=== PATIENT | female | born 1965 | race Two or more races ===

== ENCOUNTER 2025-07-12 17:23 | Emergency (ER) | payer MEDICAID, SELFPAY ==
[2025-07-12 17:23] VITALS: BMI 41.5
[2025-07-12 18:28] VITALS: BP 181/92; PULSE 88; RESP 18; TEMP 36.9; O2SAT 99
--- NOTE | 2025-07-12 18:41 | XR_ITS ---
Examination: Shoulder,left, 3 views Technique: Shoulder AP internal rotation, AP external rotation, Y view shoulder, 3 views Exam date and time :July 12, 2025, 1849 hours INDICATIONS: Onset shoulder pain today. FINDINGS: Moderate narrowing glenohumeral joint. No shoulder fracture or dislocation. Prominent soft tissue left shoulder calcific tendinitis IMPRESSION: Prominent left shoulder soft tissue calcific tendinitis
--- NOTE | 2025-07-12 18:41 | EKG_ITS ---
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
[2025-07-12 19:40] LABS: Troponin I < 0.002 ng/mL (0.0-0.045)
[2025-07-12 19:44] LABS: D-Dimer 474 ng/mL (<600)
[2025-07-12] MEDS: KETOROLAC INJ 60 MG/2 ML VIAL 30 MG IM (19:45)
[2025-07-12] MEDS: DEXAMETHASONE SOD PHOS INJ 10 MG/ML VIAL IM (19:45)
--- NOTE | 2025-07-12 20:03 | PD.EDUPEX ---
Upper Extremity Injury RME/HPI General Chief Complaint: Extremity Injury, Upper Stated Complaint: LEFT SHOULDER PAIN SINCE YESTER NO INJURY, NO FALL Time Seen by Provider: 07/12/25 18:26 Arrival date/time: 07/12/25 17:23 This is a case of 59-year-old female who came into the emergency room due to left shoulder pain for 2 days patient denies any numbness weakness tingling sensation denies any chest pain shortness of breath denies any injury or trauma persistence of the symptoms this patient decided to sought consult here in the emergency room denies neck pain Limitations: no limitations Related Data Home Medications ?Medication ?Instructions ?Recorded ?Confirmed diltiazem HCl 240 mg 240 mg PO QAM 06/26/23 06/28/23 tablet,extended release 24 hr ergocalciferol (vitamin D2) 50,000 1 unit PO QWEEK 06/26/23 06/26/23 unit tablet metformin 500 mg tablet 500 mg PO BID 06/26/23 06/26/23 prazosin 2 mg capsule (Minipress) 2 mg PO QPM 06/26/23 06/26/23 sertraline 100 mg tablet 100 mg PO QDAY 06/26/23 06/26/23 simvastatin 10 mg tablet 10 mg PO QDAY 06/26/23 06/26/23 Previous Rx's ?Medication ?Instructions ?Recorded cefuroxime axetil 500 mg tablet 500 mg PO BID #14 tabs 08/21/23 baclofen 10 mg tablet 10 mg PO BID PRN muscle spasm #10 07/12/25 tabs naproxen 500 mg tablet (Naprosyn) 500 mg PO BID PRN pain #20 tabs 07/12/25 prednisone 20 mg tablet See Taper PO QDAY 5 days #5 tabs 07/12/25 Allergies Allergy/AdvReac Type Severity Reaction Status Date / Time codeine AdvReac Severe Vomiting Verified 07/12/25 17:25 Review of Systems Review of Systems Systems Reviewed: All systems reviewed, normal except as documented Constitutional Constitutional: Reports system reviewed and no additional complaints, except as documented and Reports as per HPI Cardiovascular Cardiovascular: Reports system reviewed and no additional complaints, except as documented, Reports as per HPI, Denies chest pain and Denies dyspnea Respiratory Respiratory: Reports system reviewed and no additional complaints, except as documented, Reports as per HPI and Denies dyspnea Gastrointestinal Gastrointestinal: Reports system reviewed and no additional complaints, except as documented and Reports as per HPI Genitourinary Genitourinary: Reports system reviewed and no additional complaints, except as documented and Reports as per HPI Musculoskeletal Musculoskeletal: Reports system reviewed and no additional complaints, except as documented, Reports as per HPI and Reports other (Left shoulder pain) Neurologic Neurologic: Reports system reviewed and no additional complaints, except as documented and Reports as per HPI Past Medical History Past Medical History NEUROLOGIC: Positive Migraine; Negative Neurological Disorders, Cerebrovascular Accident, Transient Ischemic Attacks (TIA), Dementia, Alzheimer's Disease, Parkinson's Disease, Brain Tumor, Meningitis, Seizures, Epilepsy, Multiple Sclerosis, Cerebral Palsy, Amyotrophic Lateral Sclerosis (ALS/Tete Gehrig's), Guillain-Osteen Syndrome, Spina Bifida, Paralysis, Peripheral Neuropathy, Smith's Palsy, Subdural Hematoma, Head Trauma, Spinal Cord Injury or Traumatic Brain Injury CARDIAC: Positive Cardiac Disorders, Hypercholesterolemia, Edema and Hypertension; Negative Myocardial Infarction, Cardiac Arrhythmia, Atrial Fibrillation, Angina, Heart Murmur, Coronary Artery Disease, Atherosclerotic Heart Disease, Peripheral Vascular Disease, Aneurysm, Congestive Heart Failure, Congenital Heart Disease, Valvular Heart Disease, Rheumatic Fever, Cardiomyopathy, Pericarditis, Cellulitis, Deep Vein Thrombosis, Hypotension or Varicose Veins RESPIRATORY: 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, was treated) and Sleep Apnea (Cpap); Negative Chronic Obstructive Pulmonary Disease (COPD), Asthma, Bronchitis, Emphysema, Pneumonia, Pulmonary Fibrosis, Cystic Fibrosis, Pulmonary Embolism or Pulmonary Edema GASTROINTESTINAL: Positive Gastrointestinal Disorders, Gall Bladder Disease, Diverticulitis, Diverticulosis, Hemorrhoids, Gastroesophageal Reflux Disease and Obesity; Negative Hepatitis, Cirrhosis, Pancreatitis, Celiac Disease, Gastrointestinal Bleed, Esophageal Varices, Xiong's Esophagus, Colitis, Ulcerative Colitis (not sure), Ulcer, Colorectal Cancer, Irritable Bowel, Obstructive Bowel or Hiatal Hernia (not sure) GENITOURINARY: Positive Genitourinary Disorders (stress incontinence) and Inguinal Hernia (Left); Negative Renal Disease, Kidney Stones, Polycystic Kidney Disease, Neurogenic Bladder or Dialysis REPRODUCTIVE: Positive Previous Pregnancies (8); Negative Breast Cancer, Endometriosis, Genital Herpes, Gonorrhea, Pelvic Inflammatory Disease, Syphilis or Uterine Prolapse MUSCULOSKELETAL: Positive Musculoskeletal Disorders (3 broken ribs and R knee OA), Arthritis (R knee) and Fractures (ribs); Negative Muscular Dystrophy, Myasthenia Gravis, Marfan's Syndrome, Bone Cancer, Rheumatoid Arthritis, Osteoporosis, Degenerative Disk Disease, Gout, Scoliosis, Carpal Tunnel Syndrome, Fibromyalgia, Degenerative Joint Disease, Osteomyelitis or Poliovirus ENT: Negative Cataracts, Glaucoma, Blind, Retinal Detachment, Macular Degeneration, Ear Infection, Deafness, Head Trauma or Eye Prosthesis ENDOCRINE: Positive Endocrine Disorders and Diabetes Mellitus Type 2 (prediabetes); Negative Diabetes Mellitus Type 1, Hypoglycemia, [place]'s Syndrome, Vernon's Disease, Hyperthyroidism, Hypothyroidism, Parathyroid Disease, Pituitary Disease, Systemic Lupus Erythematosus, Syndrome of Inappropriate Antidiuretic Hormone (SIADH), Adrenal Disease or Graves' Disease HEMATOLOGIC: Negative Blood Disorders, Anemia, Leukemia, Hemophilia, Thalassemia, Sickle Cell Disease or Clotting Problems PSYCHO/SOCIAL: Positive Psychiatric Problems (depression, anxiety, and PTSD), Depression, Anxiety and Post Traumatic Stress Disorder; Negative Schizophrenia, Recreational Drug Use, Bipolar Disorder, Behavior Problems, Self-Mutilation, Attention Deficit Disorder, Attention Deficit Hyperactivity Disorder, Depression or Eating Disorder OTHER HISTORY: Positive Hospitalization (5150 depression), Chicken Pox and Measles; Negative Autoimmune Disease, Down Syndrome, Autism, Developmental Delay, Shingles, Falls, Blood Transfusions, Blood Transfusion Reaction, Anesthesia Reactions, Organ Transplant, Chemotherapy, Radiation Therapy, Hyperbaric Therapy, MRSA, VRSA, Vancomycin-Resistant Enterococci, Human Immunodeficiency Virus (HIV), Mumps, Rubella ([place]amese Measles), Pertussis, Clostridium Difficile, Cancer, Breast Cancer, Cervical Cancer, Colorectal Cancer, Lung Cancer or Ovarian Cancer Family History FAMILY HISTORY: Positive Family Cardiac Disorders and Family Surgery; Negative Family Psychiatric Problems, Family Respiratory Disorders, Family Gastrointestinal Problems, Family Cancer or Family Anesthesia Reaction Surgical History SURGICAL: Positive Oral Surgery (root canal (1).), Abdominal Surgery (GB removed 1989), Arthroscopy (Right knee), Tubal Ligation and Section (2); Negative Cardiac Surgery, Open Heart Surgery, Coronary Artery Bypass Graft, Valve Replacement, Vascular Surgery, Coronary Stent, Cardiac Catheterization, Pacemaker, Angiogram, Auto Implanted Cardiovert Defib, Carotid Endarterectomy, Endocrine Surgery, Thyroidectomy, Ear Surgery, Tympanostomy Tube, Eye Surgery, Nose Surgery, Tonsillectomy, Adenoidectomy, Cochlear Implant, Corneal Transplant, Throat Surgery, Tracheostomy, Gastric Bypass Surgery, Gastrostomy, Bowel Surgery, Nephrectomy, Joint Replacement, Amputation, Open Reduction Internal Fixation, Neurologic Surgery, Brain Shunt, Mastectomy, Lumpectomy, Hysterectomy or Organ Transplant Social History SMOKING STATUS: Never smoker SECOND HAND EXPOSURE: No SUBSTANCE USE: does not use ED Exam General Limitations: Present no limitations General appearance: Present alert, in no apparent distress and other (Patient is awake alert oriented not in distress nontoxic looking well-hydrated) Head Head exam: Present atraumatic, normocephalic and normal inspection Eye Eye exam: Present normal appearance, PERRL and EOMI ENT ENT exam: Present normal exam, normal oropharynx and mucous membranes moist Neck Neck exam: Present normal inspection, full ROM and trachea midline; Absent tenderness, meningismus, lymphadenopathy or thyromegaly Chest Chest inspection: Present normal inspection and symmetric chest wall rise; Absent tenderness Respiratory Respiratory exam: Present normal lung sounds bilaterally; Absent respiratory distress, wheezes, stridor, accessory muscle use or prolonged expiratory phase Cardiovascular Cardiovascular exam: Present regular rate and normal rhythm; Absent bradycardia, tachycardia, irregular rhythm, normal heart sounds, systolic murmur or diastolic murmur Abdominal Exam Abdominal exam: Present soft and normal bowel sounds Extremities Exam Extremities exam: Present normal inspection and full ROM Expanded Upper Extremity Exam Shoulder exam: Present tenderness, swelling and other (Noted a tenderness around the left deltoid area with mild swelling no crepitation no deformity no redness no swelling no cellulitis ROM is limited due to pain motor or sensory positive for any intact neurovascular intact); Absent abrasion, laceration, ecchymosis, deformity, crepitus, dislocation, erythema or tenderness over AC joint Arm exam: Present normal inspection and full ROM; Absent tenderness or swelling Back Exam Back exam: Present normal inspection and full ROM Neurological Exam Neurological exam: Present alert, oriented X3, CN II-XII intact, normal gait and reflexes normal; Absent motor sensory deficit Psychiatric Psychiatric exam: Present normal affect and normal mood Skin Skin exam: Present warm, dry, intact and normal color Course Quality Measures none Orders Category Date Time Status EKG (ED ONLY) *Do not use* NOW Care 07/12/25 18:41 Completed sling [Splint / Immobilizer] STAT Care 07/12/25 18:41 Active EKG (ED Only) Stat Exams 07/12/25 18:41 Draft XR shoulder LT min 2V Stat Exams 07/12/25 18:41 Completed D-Dimer Stat Lab 07/12/25 18:50 Completed Troponin I Stat Lab 07/12/25 18:50 Completed Dexamethasone Inj [Decadron Inj] Med 07/12/25 18:41 Discontinued 10 mg IM X1 ONE Ketorolac Inj [Toradol Inj] Med 07/12/25 18:41 Discontinued 30 mg IM X1 ONE Vital Signs Vital signs: Vital Signs Temperature 98.5 F 07/12/25 18:28 Pulse Rate 88 07/12/25 18:28 Respiratory Rate 18 07/12/25 18:28 Blood Pressure 181/92 H 07/12/25 18:28 Pulse Oximetry (%) 99 07/12/25 18:28 Oxygen Delivery Method Room Air 07/12/25 18:28 Oxygen saturation in room air 99% on room air Extremity Injury MDM Narrative MDM Narrative:: This is a case of 59-year-old female who came into the emergency room due to left shoulder pain for 2 days patient denies any numbness weakness tingling sensation denies any chest pain shortness of breath denies any injury or trauma persistence of the symptoms this patient decided to sought consult here in the emergency room denies neck pain physical examination showed Noted a tenderness around the left deltoid area with mild swelling no crepitation no deformity no redness no swelling no cellulitis ROM is limited due to pain motor or sensory positive for any intact neurovascular intact due to left shoulder and arm pain I decided to ordered some blood test to ruled out PA or DVT patient troponin and EKG was normal which I ruled out a cardiac origin the D-dimer is also normal and thus patient is not having DVT patient x-ray showed a calcific tendinitis patient was given Toradol for pain and dexamethasone and sling was applied patient tolerated well neurovascular intact patient was advised to see an orthopedic surgeon for possible MRI to rule out rotator cuff injury and for any worsening symptoms return to the emergency room immediately or call 911 Patient was discharged with comfortable condition walking with stable gait. Patient verbalized no further complains explained diagnosis and answered patient question. Patient is comfortable with the proposed management plan including the need to follow up with his/her primary care physician and any specialist if applicable Discussed patient for any urgent condition or worsening sx, He/She needed to go to emergency room immediately or call 911. Patient acknowledge the responsibility to follow up as instructed and to monitor her/his symptoms. For any persistence of the symptoms for more than 3-5 days return precaution advised. Discussed the result of the test and was given printed discharge instruction Patient data External records reviewed:: [facility] previous records Clinical information provided by:: patient Social determinants that could affect healthcare access:: none Patient has the following chronic illnesses:: Reviewed How is presenting disease/condition affected by chronic disease/condition?: no chronic disease Evaluation data The following diagnostics were reviewed and interpreted by me:: lab results and radiology exam(s) Lab and/or radiology exams considered but not ordered:: Reviewed Interpretation Summary: Reviewed Medications / Prescriptions Medications or Prescriptions considered but not ordered:: Given Medication administrations:: Medication Administration History Discontinued Medications Dexamethasone Sodium Phosphate (Dexamethasone Sod Phos Inj 10 Mg/Ml Vial) 10 mg IM X1 ONE Stop: 07/12/25 18:42 Last Admin: 07/12/25 19:45 Dose: 10 mg Documented By: DEMIAN Ketorolac Tromethamine (Ketorolac Inj 60 Mg/2 Ml Vial) 30 mg IM X1 ONE Stop: 07/12/25 18:42 Last Admin: 07/12/25 19:45 Dose: 30 mg Documented By: CN Given Consultations Consultation(s) initiated? (list below): No Diagnosis Upper Extremity Injury Differential Diagnosis: other (Calcific tendinitis) Most likely diagnosis given after review of the tests above:: Calcific tendinitis Admission Indicated Admission indicated?: not indicated Explain why admission is indicated or not indicated:: Not indicated Admission Request Was there a request for admission?: No Admission Attestation Admission request attestation: Not indicated Disposition Plan Disposition Plan: Discharge Discharge Attestation Discharge Attestation: The patient and all family members were given an opportunity to ask questions and understood the discharge instructions. Discharge instructions specifically effects, indications for sooner follow up or return to the emergency department, and the expected course of current diagnosis. Patient condition: Stable Discharge Plan Plan Patient Disposition: HOME (Self Care) Patient condition on transfer: Stable Prescriptions/Referrals Prescriptions/Med Rec: New naproxen [Naprosyn] 500 mg tablet 500 mg PO BID PRN (Reason: pain) Qty: 20 0RF prednisone 20 mg tablet See Taper PO QDAY 5 Days Qty: 5 0RF Taper: Prednisone Taper 20 mg DAILY for 2 Days and 0 Hour 10 mg DAILY for 2 Days and 0 Hour 5 mg DAILY for 7 Days and 0 Hour baclofen 10 mg tablet 10 mg PO BID PRN (Reason: muscle spasm) Qty: 10 0RF No Action cefuroxime axetil 500 mg tablet 500 mg PO BID Qty: 14 0RF metformin 500 mg Tablet 500 mg PO BID sertraline 100 mg Tablet 100 mg PO QDAY simvastatin 10 mg Tablet 10 mg PO QDAY Calciferol 50,000 unit Tablet 1 unit PO QWEEK prazosin [Minipress] 2 mg Capsule 2 mg PO QPM diltiazem HCl 240 mg Tablet Extended Release 24 Hr 240 mg PO QAM Referrals: No Primary/Family,Physician [Primary Care Provider] - In 1 week Problem List Clinical Impression: Left shoulder pain, Calcific tendinitis Patient/Caregiver Discharge Instructions Education Materials: ED Sling, ED Tendonitis, ED RICE, ED Shoulder Pain, Uncertain Cause Additional Instructions: Follow-up with your primary care physician in 2 days for reevaluation and to be referred to orthopedic surgeon for further evaluation and treatment of calcific tendinitis for possible MRI to ruled out rotator cuff injury recurrence persistent worsening symptoms or any emergent concern call 911 or go to the nearest emergency room ice pack and warm compress as needed for pain keep the sling in place until cleared by your primary care physician Print Language: [place] Stand Alone Forms: Sarika Award Info., Patient Portal Info Letter PA/CARBURETOR MECHANIC Supervising Physician PA/CARBURETOR MECHANIC Supervising Physician: Dr. Titus Nava
== END 2025-07-12 20:17 | disposition home or self-care (01) ==
PROVIDERS: Nurse Practitioner Family; Emergency Provider Emergency Medicine
DX: M75.32 Calcific tendinitis of left shoulder (principal)
CPT/HCPCS: 36415; 73030; 84484; 85379; 93005; 96372; 99284; J1100; J1885

== ENCOUNTER 2025-07-16 11:08 | Emergency (ER) | payer MEDICAID, SELFPAY ==
[2025-07-16 11:09] VITALS: BMI 41.7
--- NOTE | 2025-07-16 11:11 | EKG_ITS ---
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
[2025-07-16 11:13] VITALS: BP 139/82; PULSE 91; RESP 18; TEMP 36.4; O2SAT 94
--- NOTE | 2025-07-16 11:40 | XR_ITS ---
Examination: PA lateral chest 2 views TECHNIQUE: Upright PA lateral chest 2 views Date and time: July 16, 2025 1145 hours, comparison August 21, 2023 INDICATION: Chest pain radiating to the right arm today. FINDINGS: Normal heart size. Lungs are clear. The osseous structures are intact IMPRESSION: No active disease.
--- NOTE | 2025-07-16 11:40 | PD.EDCHEST ---
ED Chest Pain RME/HPI General Chief Complaint: Chest Pain Stated Complaint: CHEST PAIN x 15 MINUTES Time Seen by Provider: 07/16/25 13:07 Source: patient Arrival date/time: 07/16/25 11:08 59-year-old female with no known medical history presents to the emergency room with a chief complaint of sternal chest pain that radiates to her left arm x 15 minutes. Mode of arrival: ambulatory Limitations: no limitations Related Data Home Medications ?Medication ?Instructions ?Recorded ?Confirmed diltiazem HCl 240 mg 240 mg PO QAM 06/26/23 06/28/23 tablet,extended release 24 hr ergocalciferol (vitamin D2) 50,000 1 unit PO QWEEK 06/26/23 06/26/23 unit tablet metformin 500 mg tablet 500 mg PO BID 06/26/23 06/26/23 prazosin 2 mg capsule (Minipress) 2 mg PO QPM 06/26/23 06/26/23 sertraline 100 mg tablet 100 mg PO QDAY 06/26/23 06/26/23 simvastatin 10 mg tablet 10 mg PO QDAY 06/26/23 06/26/23 Previous Rx's ?Medication ?Instructions ?Recorded cefuroxime axetil 500 mg tablet 500 mg PO BID #14 tabs 08/21/23 baclofen 10 mg tablet 10 mg PO BID PRN muscle spasm #10 07/12/25 tabs naproxen 500 mg tablet (Naprosyn) 500 mg PO BID PRN pain #20 tabs 07/12/25 prednisone 20 mg tablet See Taper PO QDAY 5 days #5 tabs 07/12/25 Allergies Allergy/AdvReac Type Severity Reaction Status Date / Time codeine AdvReac Severe Vomiting Verified 07/16/25 11:10 Review of Systems Review of Systems Systems Reviewed: All systems reviewed, normal except as documented Constitutional Constitutional: Reports system reviewed and no additional complaints, except as documented, Denies fatigue, Denies fever(s), Denies headache(s) and Denies weakness Eyes Eyes: Reports system reviewed and no additional complaints, except as documented, Denies blurry vision and Denies change in vision ENT Ears, Nose, Mouth, and Throat: Reports system reviewed and no additional complaints, except as documented, Denies otalgia, Denies headache(s), Denies nasal congestion, Denies throat swelling and Denies vertigo Cardiovascular Cardiovascular: Reports system reviewed and no additional complaints, except as documented, Reports chest pain, Denies dyspnea and Denies dyspnea on exertion Respiratory Respiratory: Reports system reviewed and no additional complaints, except as documented, Denies chest congestion, Denies cough, Denies dyspnea, Denies dyspnea on exertion and Denies wheezing Gastrointestinal Gastrointestinal: Reports system reviewed and no additional complaints, except as documented, Denies abdominal pain, Denies cramping, Denies nausea and Denies vomiting Genitourinary Genitourinary: Reports system reviewed and no additional complaints, except as documented Musculoskeletal Musculoskeletal: Reports system reviewed and no additional complaints, except as documented and Denies back pain Integumentary/Breasts Skin/Breast: Reports system reviewed and no additional complaints, except as documented and Denies wounds Neurologic Neurologic: Reports system reviewed and no additional complaints, except as documented, Denies confusion, Denies headache(s), Denies lack of coordination, Denies vertigo and Denies weakness Psychiatric Psychiatric: Reports system reviewed and no additional complaints, except as documented, Denies anxiety, Denies confusion, Denies depression, Denies paranoia, Denies suicidal ideation and Denies tactile hallucinations Endocrine Endocrine: Reports system reviewed and no additional complaints, except as documented and Denies fatigue Hematologic/Lymphatic Hematologic/Lymphatic: Reports system reviewed and no additional complaints, except as documented and Denies lymphadenopathy Allergic/Immunologic Allergic/Immunologic: Reports system reviewed and no additional complaints, except as documented, Denies throat swelling, Denies urticaria and Denies wheezing Past Medical History Past Medical History NEUROLOGIC: Positive Migraine; Negative Neurological Disorders, Cerebrovascular Accident, Transient Ischemic Attacks (TIA), Dementia, Alzheimer's Disease, Parkinson's Disease, Brain Tumor, Meningitis, Seizures, Epilepsy, Multiple Sclerosis, Cerebral Palsy, Amyotrophic Lateral Sclerosis (ALS/Tete Gehrig's), Guillain-[place] Syndrome, Spina Bifida, Paralysis, Peripheral Neuropathy, Smith's Palsy, Subdural Hematoma, Head Trauma, Spinal Cord Injury or Traumatic Brain Injury CARDIAC: Positive Cardiac Disorders, Hypercholesterolemia, Edema and Hypertension; Negative Myocardial Infarction, Cardiac Arrhythmia, Atrial Fibrillation, Angina, Heart Murmur, Coronary Artery Disease, Atherosclerotic Heart Disease, Peripheral Vascular Disease, Aneurysm, Congestive Heart Failure, Congenital Heart Disease, Valvular Heart Disease, Rheumatic Fever, Cardiomyopathy, Pericarditis, Cellulitis, Deep Vein Thrombosis, Hypotension or Varicose Veins RESPIRATORY: 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, was treated) and Sleep Apnea (Cpap); Negative Chronic Obstructive Pulmonary Disease (COPD), Asthma, Bronchitis, Emphysema, Pneumonia, Pulmonary Fibrosis, Cystic Fibrosis, Pulmonary Embolism or Pulmonary Edema GASTROINTESTINAL: Positive Gastrointestinal Disorders, Gall Bladder Disease, Diverticulitis, Diverticulosis, Hemorrhoids, Gastroesophageal Reflux Disease and Obesity; Negative Hepatitis, Cirrhosis, Pancreatitis, Celiac Disease, Gastrointestinal Bleed, Esophageal Varices, Xiong's Esophagus, Colitis, Ulcerative Colitis (not sure), Ulcer, Colorectal Cancer, Irritable Bowel, Obstructive Bowel or Hiatal Hernia (not sure) GENITOURINARY: Positive Genitourinary Disorders (stress incontinence) and Inguinal Hernia (Left); Negative Renal Disease, Kidney Stones, Polycystic Kidney Disease, Neurogenic Bladder or Dialysis REPRODUCTIVE: Positive Previous Pregnancies (8); Negative Breast Cancer, Endometriosis, Genital Herpes, Gonorrhea, Pelvic Inflammatory Disease, Syphilis or Uterine Prolapse MUSCULOSKELETAL: Positive Musculoskeletal Disorders (3 broken ribs and R knee OA), Arthritis (R knee) and Fractures (ribs); Negative Muscular Dystrophy, Myasthenia Gravis, Marfan's Syndrome, Bone Cancer, Rheumatoid Arthritis, Osteoporosis, Degenerative Disk Disease, Gout, Scoliosis, Carpal Tunnel Syndrome, Fibromyalgia, Degenerative Joint Disease, Osteomyelitis or Poliovirus ENT: Negative Cataracts, Glaucoma, Blind, Retinal Detachment, Macular Degeneration, Ear Infection, Deafness, Head Trauma or Eye Prosthesis ENDOCRINE: Positive Endocrine Disorders and Diabetes Mellitus Type 2 (prediabetes); Negative Diabetes Mellitus Type 1, Hypoglycemia, Boyd's Syndrome, Berrien's Disease, Hyperthyroidism, Hypothyroidism, Parathyroid Disease, Pituitary Disease, Systemic Lupus Erythematosus, Syndrome of Inappropriate Antidiuretic Hormone (SIADH), Adrenal Disease or Graves' Disease HEMATOLOGIC: Negative Blood Disorders, Anemia, Leukemia, Hemophilia, Thalassemia, Sickle Cell Disease or Clotting Problems PSYCHO/SOCIAL: Positive Psychiatric Problems (depression, anxiety, and PTSD), Depression, Anxiety and Post Traumatic Stress Disorder; Negative Schizophrenia, Recreational Drug Use, Bipolar Disorder, Behavior Problems, Self-Mutilation, Attention Deficit Disorder, Attention Deficit Hyperactivity Disorder, Depression or Eating Disorder OTHER HISTORY: Positive Hospitalization (5150 depression), Chicken Pox and Measles; Negative Autoimmune Disease, Down Syndrome, Autism, Developmental Delay, Shingles, Falls, Blood Transfusions, Blood Transfusion Reaction, Anesthesia Reactions, Organ Transplant, Chemotherapy, Radiation Therapy, Hyperbaric Therapy, MRSA, VRSA, Vancomycin-Resistant Enterococci, Human Immunodeficiency Virus (HIV), Mumps, Rubella ([place] Measles), Pertussis, Clostridium Difficile, Cancer, Breast Cancer, Cervical Cancer, Colorectal Cancer, Lung Cancer or Ovarian Cancer Family History FAMILY HISTORY: Positive Family Cardiac Disorders and Family Surgery; Negative Family Psychiatric Problems, Family Respiratory Disorders, Family Gastrointestinal Problems, Family Cancer or Family Anesthesia Reaction Surgical History SURGICAL: Positive Oral Surgery (root canal (1).), Abdominal Surgery (GB removed 1989), Arthroscopy (Right knee), Tubal Ligation and Section (2); Negative Cardiac Surgery, Open Heart Surgery, Coronary Artery Bypass Graft, Valve Replacement, Vascular Surgery, Coronary Stent, Cardiac Catheterization, Pacemaker, Angiogram, Auto Implanted Cardiovert Defib, Carotid Endarterectomy, Endocrine Surgery, Thyroidectomy, Ear Surgery, Tympanostomy Tube, Eye Surgery, Nose Surgery, Tonsillectomy, Adenoidectomy, Cochlear Implant, Corneal Transplant, Throat Surgery, Tracheostomy, Gastric Bypass Surgery, Gastrostomy, Bowel Surgery, Nephrectomy, Joint Replacement, Amputation, Open Reduction Internal Fixation, Neurologic Surgery, Brain Shunt, Mastectomy, Lumpectomy, Hysterectomy or Organ Transplant Social History SMOKING STATUS: Never smoker SECOND HAND EXPOSURE: No SUBSTANCE USE: does not use ED Exam General Limitations: Present no limitations General appearance: Present alert and in no apparent distress Head Head exam: Present atraumatic Eye Eye exam: Present normal appearance, PERRL and EOMI ENT ENT exam: Present normal exam, normal oropharynx and mucous membranes moist Neck Neck exam: Present normal inspection, full ROM and trachea midline Chest Chest inspection: Present normal inspection and symmetric chest wall rise Respiratory Respiratory exam: Present normal lung sounds bilaterally; Absent respiratory distress, wheezes, stridor, accessory muscle use or prolonged expiratory phase Cardiovascular Cardiovascular exam: Present regular rate, normal rhythm, normal heart sounds, +S1 and +S2; Absent bradycardia, tachycardia, irregular rhythm, systolic murmur, diastolic murmur, rubs, gallop, clicks or JVD Abdominal Exam Abdominal exam: Present soft and normal bowel sounds Extremities Exam Extremities exam: Present normal inspection and full ROM Back Exam Back exam: Present normal inspection and full ROM Neurological Exam Neurological exam: Present alert, oriented X3 and CN II-XII intact Psychiatric Psychiatric exam: Present normal affect and normal mood Skin Skin exam: Present warm, dry, intact and normal color Course Quality Measures none Orders Category Date Time Status EKG (ED ONLY) *Do not use* NOW Care 07/16/25 11:11 Completed EKG (ED Only) Stat Exams 07/16/25 11:11 Draft XR chest 2V Stat Exams 07/16/25 11:40 Completed B-Type Natriuretic Peptide Stat Lab 07/16/25 11:59 Completed CBC Stat Lab 07/16/25 11:59 Completed Comprehensive Metabolic Panel Stat Lab 07/16/25 11:59 Completed Magnesium Stat Lab 07/16/25 11:59 Completed PT [Prothrombin Time with INR] Stat Lab 07/16/25 11:59 Completed PTT [Partial Thromboplastin Time] Stat Lab 07/16/25 11:59 Completed Troponin I Stat Lab 07/16/25 11:59 Completed Troponin I Stat Lab 07/16/25 13:15 Completed Vital Signs Vital signs: Vital Signs Temperature 97.5 F 07/16/25 11:13 Pulse Rate 91 07/16/25 11:13 Respiratory Rate 18 07/16/25 11:13 Blood Pressure 139/82 H 07/16/25 11:13 Pulse Oximetry (%) 94 L 07/16/25 11:13 Oxygen Delivery Method Room Air 07/16/25 11:13 Chest Pain MDM Narrative MDM Narrative:: 59-year-old female with no known medical history presents to the emergency room with a chief complaint of sternal chest pain that radiates to her left arm x 15 minutes. Patient is hemodynamically stable and in no apparent distress Physical examination shows clear bilateral lung sounds with no wheezing or any abnormal breath sounds. The patient has a strong and regular rhythm S1 and S2 noted there is no murmurs no gallops no clicks. No JVD. EKG shows normal sinus rhythm at [address] deviation. CBC CMP and troponin were all negative. [place] was also negative Patient was discharged and educated to follow-up with primary care provider in the next 24 to 48 hours and return to the emergency room for any evidence of worsening signs or symptoms Patient data External records reviewed:: [facility] previous records Clinical information provided by:: patient Social determinants that could affect healthcare access:: none Patient has the following chronic illnesses:: No chronic illness How is presenting disease/condition affected by chronic disease/condition?: no chronic disease Evaluation data The following diagnostics were reviewed and interpreted by me:: lab results and radiology exam(s) Lab and/or radiology exams considered but not ordered:: Labs and radiology exams considered and ordered Interpretation Summary: Chest [id number]: Normal heart size. Lungs are clear. The osseous structures are intact IMPRESSION: No active disease. Medications / Prescriptions Medications or Prescriptions considered but not ordered:: No medication given Medication administrations:: No medication given Consultations Consultation(s) initiated? (list below): No Diagnosis Chest Pain Differential Diagnosis: pneumothorax, stable angina, unstable angina pectoris, atypical chest pain, st elevation myocardial infarction, costochondritis and chest pain Most likely diagnosis given after review of the tests above:: Chest pain Admission Indicated Admission indicated?: not indicated Admission Request Was there a request for admission?: No Disposition Plan Disposition Plan: Discharge Discharge Attestation Discharge Attestation: The patient and all family members were given an opportunity to ask questions and understood the discharge instructions. Discharge instructions specifically effects, indications for sooner follow up or return to the emergency department, and the expected course of current diagnosis. Patient condition: Stable Discharge Plan Plan Patient Disposition: HOME (Self Care) Discharge Disposition comment: Stable Prescriptions/Referrals Prescriptions/Med Rec: No Action cefuroxime axetil 500 mg tablet 500 mg PO BID Qty: 14 0RF naproxen [Naprosyn] 500 mg tablet 500 mg PO BID PRN (Reason: pain) Qty: 20 0RF prednisone 20 mg tablet See Taper PO QDAY 5 Days Qty: 5 0RF Taper: Prednisone Taper 20 mg DAILY for 2 Days and 0 Hour 10 mg DAILY for 2 Days and 0 Hour 5 mg DAILY for 7 Days and 0 Hour baclofen 10 mg tablet 10 mg PO BID PRN (Reason: muscle spasm) Qty: 10 0RF metformin 500 mg Tablet 500 mg PO BID sertraline 100 mg Tablet 100 mg PO QDAY simvastatin 10 mg Tablet 10 mg PO QDAY Calciferol 50,000 unit Tablet 1 unit PO QWEEK prazosin [Minipress] 2 mg Capsule 2 mg PO QPM diltiazem HCl 240 mg Tablet Extended Release 24 Hr 240 mg PO QAM Referrals: Marifer Sellers FNP [Primary Care Provider] - In 1 week Problem List Clinical Impression: Chest pain Patient/Caregiver Discharge Instructions Education Materials: ED Chest Pain, Noncardiac Additional Instructions: Please follow-up with your primary care provider in the next 24 to 48 hours. Your cardiac examination was within normal limits. Your EKG was within normal limits and your blood work was all within normal limits For any evidence of worsening signs or symptoms please return to the emergency room immediately Print Language: Faroese Stand Alone Forms: [employer]ika Award Info., Patient Portal Info Letter
[2025-07-16 12:20] LABS: Basophils # (Auto) 0.1 Thou/mm3 (0.0-0.2); Basophils % (Auto) 0 % (0-2.5); Eosinophils # (Auto) 0.1 Thou/mm3 (0.0-0.5); Eosinophils % (Auto) 1 % (0-10); Hematocrit 36.9 % (36.0-46.0); Hemoglobin 12.4 g/dL (12.0-16.0); Immature Granulocytes Auto 0.11 Thou/mm3 (0.00-0.00); Lymphocytes # (Auto) 3.4 Thou/mm3 (1.0-4.8); Lymphocytes % (Auto) 25 % (10-50); Mean Corpuscular HGB Conc 33.6 g/dl (31.0-37.0); Mean Corpuscular Hemoglobin 28.9 pg (25.0-35.0); Mean Corpuscular Volume 86 fL (80-100); Monocytes # (Auto) 0.7 Thou/mm3 (0.0-0.8); Monocytes % (Auto) 5 % (0-12); Neutrophils # (Auto) 9.2 Thou/mm3 (1.8-7.7); Neutrophils % (Auto) 68 % (37-80); Nucleated Red Blood Cell # 0.00 Thou/mm3 (0.00-0.00); Nucleated Red Blood Cell % 0 /100 WBC (0); Platelet Count 239 Thou/mm3 (140-440); RDW Standard Deviation 43.8 fL (36.4-46.3); Red Blood Count 4.29 Miln/mm3 (4.00-5.20); White Blood Count 13.5 Thou/mm3 (3.6-11.0)
[2025-07-16 12:36] LABS: INR 1.0 (0.9-1.3); Partial Thromboplastin Time 25.1 Seconds (22.0-36.0); Prothrombin Time 10.8 Seconds (9.0-12.2)
[2025-07-16 12:39] LABS: B-Type Natriuretic Peptide 47 pg/mL (0-100)
[2025-07-16 12:43] LABS: Alanine Aminotransferase 12 U/L (10-49); Albumin, Serum 4.7 gm/dL (3.5-5.0); Albumin/Globulin Ratio 1.9 (1.2-2.2); Alkaline Phosphatase 94 U/L (46-116); Anion Gap 11 (7-16); Aspartate Amino Transferase 18 U/L (0-34); BUN/Creatinine Ratio 15 Ratio (12-20); Bilirubin,Total 0.4 mg/dL (0.3-1.2); Blood Urea Nitrogen 17 mg/dL (9-23); Calcium 10.3 mg/dL (8.3-10.6); Calcium (Corrected) 10.3 mg/dL (8.5-10.1); Carbon Dioxide 27.6 mMol/L (20.0-31.0); Chloride 106 mMol/L (98-107); Creatinine (Component) 1.1 mg/dL (0.6-1.3); Estimated Creatinine Clearance 62.1 mL/min (>60); Globulin 2.5 gm/dL (2.3-3.5); Glucose 95 mg/dL (74-106); Magnesium 1.7 mg/dL (1.6-2.6); Osmolality,Calculated 290 (275-295); Potassium 4.1 mMol/L (3.4-5.1); Sodium 145 mMol/L (136-145); Total Protein 7.2 gm/dL (5.7-8.2); Troponin I < 0.002 ng/mL (0.0-0.045); eGFR 58 See Note
[2025-07-16 13:47] LABS: Troponin I < 0.002 ng/mL (0.0-0.045)
[2025-07-16 14:34] VITALS: BP 146/92; PULSE 74; RESP 18; TEMP 36.7; O2SAT 97
== END 2025-07-16 14:36 | disposition home or self-care (01) ==
PROVIDERS: Nurse Practitioner Family; Emergency Provider Family Medicine; PCP Student in an Organized Health Care Education/Training Program
DX: R07.2 Precordial pain (principal); R94.31 Abnormal electrocardiogram [ECG] [EKG]
CPT/HCPCS: 36415; 71046; 80053; 83735; 83880; 84484; 85025; 85610; 85730; 93005; 99283

== ENCOUNTER 2025-09-16 08:30 | Outpatient (RCR) | payer MEDICAID, SELFPAY ==
--- NOTE | 2025-09-09 13:46 | PTNOTE_ITS ---
PT OP Initial Eval Patient Information Outpatient Physical Therapy Treatment Date: 09/09/25 Visit Reasons: Left shoulder calcific tendinitis Medical Diagnosis: Left Shoulder Pain Treatment Dx #1: Left Shoulder Weakness Start of Care: 09/09/25 Date of Onset: 5 months ago Smoking Status Smoking Status: Never smoker Initial Assessment Subjective: Pt is a 60 y/o female reports of left shoulder pain (05/27) ~ 5 months ago. Pt's most recent xray showed calcific tendonitis. No MRI has been done thus far. Pt has limitation with lifting, overhead motions, chores, self care, cooking, cleaning, and performing recreational activities. Objective: Left Shoulder PROM: all motions are WFL with pain Left Shoulder AROM Flexion: 100 deg Abuction: 90 deg External Rotation: 60 deg Internal Rotation: 30 deg Left Shoulder MMTs: grossly 3-/5 Left Scapula MMTs: grossly 3-/5 Special Test (+) neer's Palpation: TTP supraspinatus tendon Assessment: Pt demonstrate left shoulder with mobility deficits consistent with rotator cuff involvement leading to difficulty with ADLs. Pt will attempt physical therapy if pain persist Pt will be refer back to provider for further consultation. Short Term and Set Up Operator Goals 1) Increase left shoulder PROM WNL in 6 wks to prevent frozen shoulder 2) Increase left shoulder AROM WFL in 6 wks to be able to perform overhead motions 3) Increase left shoulder MMTs grossly to 4-/5 in 6 wks to be able to perform lifting activities 4) Increase left scapula MMTs grossly 3+/5 in 6 wks to be able to perform self care activities 5) Decrease shoulder pain to 2/10 in 6 wks to be able to sleep more than 6 hrs 6) Indep with HEP Treatment Plan 1) Manual Therapy 2) Therapeutic Activities 3) Therapeutic Exercises 4) Modalities (ice, heat) Frequency and Duration: 2 x wk for 6 wks Certification Dates: 09/09/25 to 12/10/25 Procedure Charges OP PT Eval Mod Complex 30 minutes: Yes
--- NOTE | 2025-09-13 14:15 | PT.ODAYNRPT ---
PT Outpatient Daily Note OP Daily Note Outpatient Physical Therapy Treatment Date: 09/13/25 Visit Reasons: Left shoulder calcific tendinitis Subjective: Pt's left shoulder continues to hurt. Pt still has limitation with abduction ROM Objective: Please see flow chart for list of ther ex performed Assessment: Pt had pain with shoulder abduction arm movement. Minimal progression noted post PT session. Post ice helped with pain and soreness Plan: Continue with PT Length of Time (minutes) of Treatment: 30 Minutes Procedure Charges Therapeutic Exercise 30 minutes: Yes
--- NOTE | 2025-09-16 09:02 | PTNOTE_ITS ---
PT Outpatient Daily Note OP Daily Note Outpatient Physical Therapy Treatment Date: 09/16/25 Visit Reasons: Left shoulder calcific tendinitis Subjective: Pt's shoulder feels more irritated after last therapy session. 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 Pt can manage exercises below 90 deg flexion and abduction Plan: Continue with PT Length of Time (minutes) of Treatment: 30 Minutes Procedure Charges Therapeutic Exercise 30 minutes: Yes
== END 2025-09-17 23:59 | disposition home or self-care (01) ==
LOC: CPTX 08:30
PROVIDERS: PCP Student in an Organized Health Care Education/Training Program; Referring Provider Student in an Organized Health Care Education/Training Program; Visit Provider Student in an Organized Health Care Education/Training Program
DX: M25.512 Pain in left shoulder (principal); R53.1 Weakness; M75.32 Calcific tendinitis of left shoulder
CPT/HCPCS: 97110; 97162